=== PATIENT | female | born 1960 | race Caucasian/White ===

== ENCOUNTER 2021-08-01 01:21 | Emergency (ER) | payer MEDICARE | END 2021-08-01 02:55 | disposition home or self-care (01) | LOC: ER1 01:21 | DX: M25.462 Effusion, left knee (principal); M25.475 Effusion, left foot; M79.662 Pain in left lower leg; I48.91 Unspecified atrial fibrillation; Z95.0 Presence of cardiac pacemaker; Z88.0 Allergy status to penicillin | CPT/HCPCS: 73564; 73610; 73630; 93971; 99283 ==

== ENCOUNTER → 2022-05-27 | Outpatient (CLI) | payer MEDICARE | LOC: HEART 5 08:17 | DX: I20.9 Angina pectoris, unspecified (principal); I07.1 Rheumatic tricuspid insufficiency; I27.20 Pulmonary hypertension, unspecified | CPT/HCPCS: 78452; 93306; A9502; J2785 ==